=== PATIENT | male | born 1925 ===

== ENCOUNTER → 2016-09-19 | Outpatient (REF) ==
[2016-09-19 15:38] LABS: PH 5 (5-8); SQUAMOUS EPITHELIAL None Seen /hpf; URINE APPEARANCE Clear; URINE BACTERIA None Seen /hpf; URINE BILIRUBIN Negative (NEGATIVE); URINE BLOOD Negative (NEGATIVE); URINE COLOR Yellow; URINE GLUCOSE Negative (NEGATIVE); URINE KETONE Negative (NEGATIVE); URINE UROBILINOGEN Negative (NEGATIVE)
== END ==
LOC: ZLAB.STJ 15:10
PROVIDERS: Orthopaedic Surgery Sports Medicine
DX: Z01.89 Encounter for other specified special examinations (principal)